=== PATIENT | female | born 1990 | race Caucasian/White ===

== ENCOUNTER 2022-11-26 11:41 | Emergency (ER) | payer MEDICAID ==
[~2022-11-26] VITALS: Ht 170.2 cm; Wt 77.0 kg
[2022-11-26 11:47] VITALS: O2SAT 99
[2022-11-26 14:57] LABS: CLARITY URINE TURBID (CLEAR); COLOR URINE DARK YELLOW (YELLOW); GLUCOSE URINE NEGATIVE (NEGATIVE); KETONES URINE 3+ (NEGATIVE); LEUKOCYTE ESTERASE URINE 3+ (NEGATIVE); NITRITE URINE NEGATIVE (NEGATIVE); OCCULT BLOOD URINE NEGATIVE (NEGATIVE); PH URINE 6.5 (4.5-8.0); PROTEIN URINE 1+ (NEGATIVE); SPECIFIC GRAVITY URINE 1.024 (1.005-1.030)
[2022-11-26 15:14] LABS: SQUAMOUS EPITHELIAL CELL URINE 3+ /lpf (RARE/1+)
[2022-11-26 15:16] LABS: RBC URINE 0-2 /hpf (0-2); WBC URINE 25-50 /hpf (0-2)
[2022-11-26 15:18] LABS: BACTERIA URINE 4+; YEAST URINE NONE SEEN
[2022-11-26] MEDS ORDERED: CEPH500C2 MT (15:52)
[2022-11-26] MEDS ORDERED: CEPHALEXIN 250MG CAPSULE PO ONE (16:00)
[2022-11-26 16:37] VITALS: BP 110/81; PULSE 91; RESP 16; TEMP 98.3
== END 2022-11-26 16:38 | disposition home or self-care (01) ==
LOC: EDBD 12:12 → ER 12:12
DX: O23.42 Unspecified infection of urinary tract in pregnancy, second trimester (principal); N39.0 Urinary tract infection, site not specified; Z3A.18 18 weeks gestation of pregnancy
CPT/HCPCS: 81003; 81025; 87086; 76805; 99284; Z7610